=== PATIENT | female | born 1935 | race Caucasian/White ===

== ENCOUNTER → 2017-04-25 | Outpatient (CLI) | payer MEDICARE, OTHER ==
[~2017-04-25] MED LIST: CALC600T72 PO; MULT-1335 PO; POTA473S4 PO; WATER PILL; [UNRECOGNIZED DRUG - OTHER]
--- NOTE | 2017-04-26 08:24 | RADIOLOGY IMAGING REPORT ---
FACILITY: [facility] PATIENT NAME: KAYLYNN STEWART : [id number] MR: [id number] V: [id number] EXAM DATE: ORDERING PHYSICIAN: ROSS GORE TECHNOLOGIST: Jenna Chavarria PROCEDURE:BILATERAL DIGITAL SCREENING MAMMOGRAM WITH CAD ASSISTED INTERPRETATION AND 3D BREAST TOMOSYNTHESIS. COMPARISON:Prior mammograms dated 03/10/16, 03/08/15, 04/08/13, , 03/06/11 and 02/20/11. I/NDICATIONS:SCREENING FINDINGS: Moderately heterogeneous fibroglandular tissue is seen throughout the breasts. The parenchymal pattern has remained stable when allowing for difference in mammographic technique and patient positioning. There is no evidence of malignant appearing mass, malignant appearing calcification or other secondary sign of malignancy in either breast. DIAGNOSTIC CATEGORY 1--NEGATIVE. RECOMMENDATIONS: ROUTINE MAMMOGRAM AND CLINICAL EVALUATION. IMPRESSION: Bi-RADS 1: No significant abnormality is seen. Images were reviewed with R2CAD and 3D breast tomosynthesis. Dictated by: Queta Dove M.D. on 04/25/2017 at 15:45 Transcribed by: SEDA on 04/25/2017 at 19:10 Approved by: Queta Dove M.D. on 04/26/2017 at 8:23 [facility] /, / and /
== END ==
LOC: MAMO 01:37
PROVIDERS: ATTEND Family Medicine
DX: Z12.31 Encounter for screening mammogram for malignant neoplasm of breast (principal)
CPT/HCPCS: 77063; 77067

== ENCOUNTER → 2018-05-23 | Outpatient (CLI) | payer MEDICARE, OTHER ==
--- NOTE | 2018-05-23 14:45 | RADIOLOGY IMAGING REPORT ---
FACILITY: [facility] [place] PATIENT NAME: Marimar Webb : 1935 MR: [id number] V: [id number] EXAM DATE: ORDERING PHYSICIAN: ROSS GORE TECHNOLOGIST: Location: [facility] [place] Patient: Marimar Webb : 1935 Visit/Account:[id number] Date of Sevice: 05/23/2018 BONE DENSITY HISTORY: Screening COMPARISON: DEXA 02/20/2011 FINDINGS: LUMBAR SPINE: Bone mineral density (BMD) measured from L1-L4 correlates with a Z-score of 3.4 and a T-score of 1.1 which is normal as defined by the World Health Organization. The corresponding risk of fracture in t he lumbar spine is not increased compared with a young adult reference population. This value has in creased by 8.5% since the prior study. More than 5% change is considered significant. HIP: Bone mineral density (BMD) measured in the left total hip region correlates with a Z-score of 3.3 and a T-score of 0.8 which is normal as defined by the World Health Organization. The corresponding ris k of fracture in the hip is not increased compared with a young adult reference population. This deanna ue has increased by 1.7% since the prior study. More than 5% change is considered significant. Bone mineral density (BMD) measured in the left Femoral Neck region measures 1.0 g/cm2. IMPRESSION: 1. Lumbar spine: Normal. There has been increase in the bone mineral density since the previous ex am. 2. Left Total Hip: Normal. There has been no significant change in the bone mineral density since the previous exam. 3. Left Femoral Neck: Bone Mineral Density is 1.1 g/cm2. The next DEXA scan of this patient should include the following sites: L1-L4, left hip. FRAX? WHO Fracture Risk Assessment Tool link: <http://www.shef.ac.uk/FRAX/tool.jsp?locationValue=9> PLEASE NOTE: 1) The World Health Organization defines low BMD as follows: T-score Normal > -1 Osteopenia < -1 and > -2.5 Osteoporosis < -2.5 without fractures Established osteoporosis < -2.5 with fractures 2) In general, you may wish to consider: Diagnosis Treatment Follow-up DEXA Normal BMD Prevention 2-3 years Osteopenia Prevention/therapy 1-2 years Osteoporosis Therapy Yearly 3) Fracture risk estimated from the T-score is more accurate for vertebral fractures (often spontane ous) than for hip fractures. Report Dictated By: Rolando Morgan DO at 05/23/2018 2:39 PM Report E-Signed By: Rolando Morgan DO at 05/23/2018 2:41 PM WSN:[id number]
--- NOTE | 2018-05-29 16:46 | RADIOLOGY IMAGING REPORT ---
FACILITY: [facility] PATIENT NAME: KAYLYNN STEWART : [id number] MR: [id number] V: [id number] EXAM DATE: [id number] ORDERING PHYSICIAN: ROSS GORE TECHNOLOGIST: Flori Cotter PROCEDURE:BILATERAL DIGITAL SCREENING MAMMOGRAM WITH CAD ASSISTED INTERPRETATION & 3D TOMOSYNTHESIS COMPARISON:Prior mammograms. INDICATIONS:screening FINDINGS: The breasts are heterogeneously dense. A small focal asymmetry is present in the anterior Right breast, unchanged. Benign appearing asymmetries are scattered else were in both breast, unchanged. DIAGNOSTIC CATEGORY 1--NEGATIVE. RECOMMENDATIONS: ROUTINE MAMMOGRAM AND CLINICAL EVALUATION IN 1 YR. IMPRESSION: BIRADS 1: Negative. Dictated by: Yayo Jamison M.D. on 05/24/2018 at 13:08 Transcribed by: JAMES on 05/24/2018 at 13:47 Approved by: Queta Dove M.D. on 05/29/2018 at 16:44 [facility]
== END ==
LOC: MAMO 00:46
PROVIDERS: ATTEND Family Medicine
DX: Z12.31 Encounter for screening mammogram for malignant neoplasm of breast (principal); N95.1 Menopausal and female climacteric states; Z80.3 Family history of malignant neoplasm of breast
CPT/HCPCS: 77063; 77067; 77080

== ENCOUNTER 2018-08-10 03:36 | Emergency (ER) | payer MEDICARE, OTHER ==
--- NOTE | 2018-08-10 03:54 | ER Report ---
History and Physical Time Seen By MD: 03:53 Hx. of Stated Complaint: PATIENT REPORTS WAKING UP FROM SLEEP APPROX 0300 WITH ACUTE ONSET ABDOMINAL PAIN HPI/ROS CHIEF COMPLAINT: Abdominal pain HISTORY OF PRESENT ILLNESS: This is an 83-year-old female. She awoke from sleep tonight at approximately 0300 hours with acute abdominal pain. She feels this in the left upper area of her abdomen and somewhat in the epigastric area. She had gotten up to use the bathroom and when she went to go back in bed is when the pain started. She denies any nausea or vomiting with this. Her bowels have been normal without any diarrhea or constipation recently. She denies any trouble with urination such as dysuria or frequency. No blood in the stool or urine noted. No fevers or chills. Denies any chest pains or shortness of breath. Allergies: Coded Allergies: No Known Drug Allergies (Unverified , 08/10/18) Home Meds No Active Prescriptions or Reported Meds Past Medical/Surgical History Surgical history includes cholecystectomy and very remote history of appendectomy. She also has some arthritis, mainly in her hands. Her primary care provider has been watching her blood pressure which is slowly been increasing recently, no current treatment. No regular medicines but takes supplements including calcium and vitamin D Reviewed Nurses Notes: Yes Smoking Status: Never Smoker Constitutional Physical Exam General Appearance: The patient is alert. No acute distress. Eyes: Pupils are equal, round. No pallor, injection or icterus. ENT: Mucous membranes are moist. Normal oral mucosa. Posterior oropharynx is normal. Neck: Supple and non tender. Respiratory: Lungs are clear to auscultation. Cardiovascular: Bradycardia but with a regular rhythm. No murmurs, gallops or rubs. Normal capillary refill. No edema. Gastrointestinal: Abdomen is soft but is tender in the left upper quadrant and to a lesser extent in the epigastric area. Nondistended. No rebound or guarding. No masses or organomegaly. Normal active bowel sounds. No costovertebral angle tenderness with percussion. Neurological: Alert and oriented x3. No focal neurologic deficits Skin: Warm and dry. No rashes. Musculoskeletal: Extremities are nontender. No pain with palpating the spine and back. DIFFERENTIAL DIAGNOSIS: After history and physical exam, differential diagnosis was considered for a patient with left-sided abdominal pain starting tonight uncertain etiology but would consider urinary tract related versus colitis or diverticulitis although no fevers or chills or real changes in bowel or bladder function. The bradycardia that is incidentally noted is concerning as well and I would like to get an EKG to further clarify this as well. She denies any chest pains. Medical Decision Making Data Points Laboratory Hematology Test 08/10/18 03:45 08/10/18 03:54 Urine Color Yellow Urine Clarity Slightly-cloudy Urine pH 6.0 pH (4.8-9.5) Urine Specific [place] 1.013 Urine Protein Negative mg/dL (NEGATIVE) Urine Glucose (UA) Negative mg/dL (NEGATIVE) Urine Ketones Negative mg/dL (NEGATIVE) Urine Blood Small (NEGATIVE) Urine Nitrite Negative (NEGATIVE) Urine Bilirubin Negative (NEGATIVE) Urine Urobilinogen Negative mg/dL (0.2-1.9) Urine Leukocyte Esterase Negative (NEGATIVE) Urine RBC 3 /HPF (0-2/HPF) Urine WBC 3 /HPF (0-5/HPF) Urine Squamous Epithelial Cells Many /LPF (</=FEW) Urine Transitional Epithelial Cells Moderate /LPF (NONE-FEW) Urine Calcium Oxalate Crystals Many /HPF (NONE) Urine Bacteria Negative /HPF (NONE-FEW) Urine Mucus None /HPF (NONE-FEW) Red Blood Count 5.58 M/uL (4.17-5.56) Mean Corpuscular Volume 88.4 fL (80.0-96.0) Mean Corpuscular Hemoglobin 29.8 pg (26.0-33.0) Mean Corpuscular Hemoglobin Concent 33.7 g/dL (32.0-36.0) Red Cell Distribution Width 14.9 % (11.5-14.5) Mean Platelet Volume 9.6 fL (7.2-11.1) Neutrophils (%) (Auto) 33.3 % (39.4-72.5) Lymphocytes (%) (Auto) 56.1 % (17.6-49.6) Monocytes (%) (Auto) 9.9 % (4.1-12.4) Eosinophils (%) (Auto) 0.3 % (0.4-6.7) Basophils (%) (Auto) 0.4 % (0.3-1.4) Nucleated RBC Relative Count (auto) 0.0 /100WBC Neutrophils # (Auto) 1.4 K/uL (2.0-7.4) Lymphocytes # (Auto) 2.3 K/uL (1.3-3.6) Monocytes # (Auto) 0.4 K/uL (0.3-1.0) Eosinophils # (Auto) 0.0 K/uL (0.0-0.5) Basophils # (Auto) 0.0 K/uL (0.0-0.1) Nucleated RBC Absolute Count (auto) 0.00 K/uL Sodium Level 140 mmol/L (137-145) Potassium Level 3.9 mmol/L (3.5-5.0) Chloride Level 102 mmol/L (98-107) Carbon Dioxide Level 29 mmol/L (22-31) Blood Urea Nitrogen 18 mg/dl (7-18) Creatinine 0.80 mg/dl (0.52-1.04) Glomerular Filtration Rate Calc > 60.0 Random Glucose 121 mg/dl (75-110) Calcium Level 10.3 mg/dl (8.4-10.2) Total Bilirubin 1.1 mg/dl (0.2-1.3) Aspartate Amino Transf (AST/SGOT) 35 U/L (0-35) Alanine Aminotransferase (ALT/SGPT) 20 U/L (0-56) Alkaline Phosphatase 58 U/L (0-126) Total Protein 8.0 g/dl (6.3-8.2) Albumin 4.6 g/dl (3.5-5.0) Amylase Level 73 U/L (0-110) Lipase 126 U/L (23-300) Chemistry Test 08/10/18 03:45 08/10/18 03:54 Urine Color Yellow Urine Clarity Slightly-cloudy Urine pH 6.0 pH (4.8-9.5) Urine Specific [place] 1.013 Urine Protein Negative mg/dL (NEGATIVE) Urine Glucose (UA) Negative mg/dL (NEGATIVE) Urine Ketones Negative mg/dL (NEGATIVE) Urine Blood Small (NEGATIVE) Urine Nitrite Negative (NEGATIVE) Urine Bilirubin Negative (NEGATIVE) Urine Urobilinogen Negative mg/dL (0.2-1.9) Urine Leukocyte Esterase Negative (NEGATIVE) Urine RBC 3 /HPF (0-2/HPF) Urine WBC 3 /HPF (0-5/HPF) Urine Squamous Epithelial Cells Many /LPF (</=FEW) Urine Transitional Epithelial Cells Moderate /LPF (NONE-FEW) Urine Calcium Oxalate Crystals Many /HPF (NONE) Urine Bacteria Negative /HPF (NONE-FEW) Urine Mucus None /HPF (NONE-FEW) White Blood Count 4.1 k/uL (4.5-11.0) Red Blood Count 5.58 M/uL (4.17-5.56) Hemoglobin 16.6 g/dL (12.0-16.0) Hematocrit 49.3 % (34.0-47.0) Mean Corpuscular Volume 88.4 fL (80.0-96.0) Mean Corpuscular Hemoglobin 29.8 pg (26.0-33.0) Mean Corpuscular Hemoglobin Concent 33.7 g/dL (32.0-36.0) Red Cell Distribution Width 14.9 % (11.5-14.5) Platelet Count 145 K/uL (150-450) Mean Platelet Volume 9.6 fL (7.2-11.1) Neutrophils (%) (Auto) 33.3 % (39.4-72.5) Lymphocytes (%) (Auto) 56.1 % (17.6-49.6) Monocytes (%) (Auto) 9.9 % (4.1-12.4) Eosinophils (%) (Auto) 0.3 % (0.4-6.7) Basophils (%) (Auto) 0.4 % (0.3-1.4) Nucleated RBC Relative Count (auto) 0.0 /100WBC Neutrophils # (Auto) 1.4 K/uL (2.0-7.4) Lymphocytes # (Auto) 2.3 K/uL (1.3-3.6) Monocytes # (Auto) 0.4 K/uL (0.3-1.0) Eosinophils # (Auto) 0.0 K/uL (0.0-0.5) Basophils # (Auto) 0.0 K/uL (0.0-0.1) Nucleated RBC Absolute Count (auto) 0.00 K/uL Glomerular Filtration Rate Calc > 60.0 Calcium Level 10.3 mg/dl (8.4-10.2) Total Bilirubin 1.1 mg/dl (0.2-1.3) Aspartate Amino Transf (AST/SGOT) 35 U/L (0-35) Alanine Aminotransferase (ALT/SGPT) 20 U/L (0-56) Alkaline Phosphatase 58 U/L (0-126) Total Protein 8.0 g/dl (6.3-8.2) Albumin 4.6 g/dl (3.5-5.0) Amylase Level 73 U/L (0-110) Lipase 126 U/L (23-300) Urinalysis Test 08/10/18 03:45 Urine Color Yellow Urine Clarity Slightly-cloudy Urine pH 6.0 pH (4.8-9.5) Urine Specific [place] 1.013 Urine Protein Negative mg/dL (NEGATIVE) Urine Glucose (UA) Negative mg/dL (NEGATIVE) Urine Ketones Negative mg/dL (NEGATIVE) Urine Blood Small (NEGATIVE) Urine Nitrite Negative (NEGATIVE) Urine Bilirubin Negative (NEGATIVE) Urine Urobilinogen Negative mg/dL (0.2-1.9) Urine Leukocyte Esterase Negative (NEGATIVE) Urine RBC 3 /HPF (0-2/HPF) Urine WBC 3 /HPF (0-5/HPF) Urine Squamous Epithelial Cells Many /LPF (</=FEW) Urine Transitional Epithelial Cells Moderate /LPF (NONE-FEW) Urine Calcium Oxalate Crystals Many /HPF (NONE) Urine Bacteria Negative /HPF (NONE-FEW) Urine Mucus None /HPF (NONE-FEW) EKG/Imaging EKG Interpretation 12 lead EKG: Rhythm: This appears to be complete heart block with a rate of 42 [place]: normal QRS: Wide complex ventricular beats ST segments: Nonspecific based on underlying rhythm Imaging CT of the abdomen and pelvis with contrast: Indication: Epigastric and left upper quadrant pain. Technique: Helical CT was performed through the abdomen and pelvis following IV contrast enhancement with 75 cc of Isovue-370. Multiplanar reconstructions are reviewed. One of the following dose optimization techniques was utilized in the perform ance of this exam: Automated exposure control; adjustment of the mA and/or kV according to the patient's size; or use of an iterative reconstruction technique. Specific details can be referenced in the facility's radiology CT exam operational policy. Comparison: None available. Lower lung aguilar: No focal parenchymal or pleural abnormality is identified. Liver: Normal in size, shape, and density. The venous structures appear unremarkable. Gallbladder/biliary tree: There are surgical clips related to prior cholecystectomy. The bile ducts are not dilated. Pancreas: Unremarkable, as visualized. Spleen: Normal in size, shape, and density. Adrenal glands: Within normal limits. Kidneys/urinary bladder: The kidneys are normal in size, shape, and density. There are no signs of urinary tract calculus or obstruction. The bladder appears homogeneous and unremarkable. Mesentery: There is confluent abnormal soft tissue density in the root of the mesentery, suspicious for lymphoma. No discrete lymph nodes are clearly identified. Intestinal structures: Unremarkable, as visualized. There are no signs of obstruction or focal inflammatory changes. Pelvis: The uterus and adnexal structures are unremarkable, as visualized. There are no signs of lymph node enlargement, soft tissue abnormality, or fluid in the pelvis. Aorta and vascular structures: There is moderate atherosclerotic calcification in the aorta and iliac arteries. There is no evidence of aneurysm. Ascites or fluid collections: None seen. Skeletal structures: There are chronic degenerative changes in the lumbar spine and hips. No acute skeletal deformity or destructive skeletal lesions are identified. Impression: There is confluent abnormal soft tissue density in the root of the mesentery, suspicious for lymphoma. No discrete lymph nodes are clearly identified. Further clinical correlation is recommended. Report Dictated By: Manuel Palomares MD at 08/10/2018 5:21 AM ED Course/Re-evaluation Clinical Indication for ER IV: Hydration, IV Access ED Course After initial evaluation, heart rate was noted to be low. EKG was obtained and did show complete heart block. Patient is not having any syncope, level of alertness is normal. I reviewed this finding with the patient and we did move her into a different room and placed external pacing pads on in case we needed to do external pacing. Labs were obtained and do show changes in the white count consistent with possible lymphoma, and on metabolic panel everything is normal other than elevated calcium. Urinalysis does show some white cells and red cells but quite a bit of epithelial cells in the urine as well consistent with likely contamination. We will order a urine culture on this. CT scan was obtained and does show some thickening in the root of the mesentery consistent with possible lymphoma, this is also consistent with the labs were seen. Uncertain how this would be related to complete heart block and lesser was lymphoma infiltrating cardiac tissue as well. No history of heart problems in the past. I reviewed all this information with the patient as well as her daughter and granddaughter who are present. We did discuss CODE STATUS. At this point in time she is not certain what she would want. She did state that she doesn't want to be hooked up to a machine. She is uncertain about whether she wants a pacemaker but we'll discuss this with the credit investigator. Because she is uncertain, at this point she is considered a FULL CODE. I discussed the case with cardiology and the hospitalist in [place], Dr. Verduzco, the hospitalist is the accepting physician. She will be going to the ICU there for further care and further workup and treatment of both the complete heart block as well as the abdominal pain and question of lymphoma. Decision to Disposition Date: August 10, 2018 Decision to Disposition Time: 06:20 Depart Departure Latest Vital Signs Impression: Primary Impression: Complete heart block Additional Impression: Abdominal pain Condition: Condition Unchanged Disposition: XFER TO ACUTE CARE HOSPITAL Referrals: ROSS GORE DO (PCP) New Scripts No Active Prescriptions or Reported Meds Problem Qualifiers Additional Impression: Abdominal pain Abdominal location: upper abdomen, unspecified Qualified Codes: R10.10 - Upper abdominal pain, unspecified RICKI ROMERO MD August 10, 2018 03:54
[2018-08-10] MEDS ORDERED: NS(*) 0.9% 1000 ML BAG 1,000 ML IV ONE (04:05)
[2018-08-10 04:14] LABS: PLATELET COUNT, AUTOMATED 145 K/uL (150-450)
--- NOTE | 2018-08-10 04:15 | EKG ---
FACILITY: [facility] [place] PATIENT NAME: KAYLYNN STEWART : [id number] MR: [id number] V: [id number] EXAM DATE: ORDERING PHYSICIAN: RICKI ROMERO TECHNOLOGIST: ZARINA Test Reason : ABDOMINAL PAIN Blood Pressure : / mmHG Vent. Rate : 042 BPM Atrial Rate : 061 BPM P-R Int : 000 ms QRS Dur : 130 ms QT Int : 520 ms P-R-T Axes : 000 082 234 degrees QTc Int : 434 ms Third degree heart block with ventricular escape rhythm Abnormal ECG No previous ECGs available Confirmed by Jean Henson ([id number]) on 08/10/2018 8:02:15 AM Referred By: Confirmed By:Jean Louise
[2018-08-10] MEDS ORDERED: IOPAMIDOL 76% 150 ML INFUS BTL 150 ML ONE (04:18)
--- NOTE | 2018-08-10 05:40 | RADIOLOGY IMAGING REPORT ---
FACILITY: [facility] PATIENT NAME: Marimar Webb : 1935 MR: [id number] V: [id number] EXAM DATE: ORDERING PHYSICIAN: RICKI ROMERO TECHNOLOGIST: Location: [facility] [place], [place] Patient: Marimar Webb : 1935 Visit/Account:[id number] Date of Sevice: 08/10/2018 CT of the abdomen and pelvis with contrast: Indication: Epigastric and left upper quadrant pain. Technique: Helical CT was performed through the abdomen and pelvis following IV contrast enhancement with 75 cc of Isovue-370. Multiplanar reconstructions are reviewed. One of the following dose optimization techniques was utilized in the performance of this exam: Autom ated exposure control; adjustment of the mA and/or kV according to the patient's size; or use of an i terative reconstruction technique. Specific details can be referenced in the facility's radiology CT exam operational policy. Comparison: None available. Lower lung aguilar: No focal parenchymal or pleural abnormality is identified. Liver: Normal in size, shape, and density. The venous structures appear unremarkable. Gallbladder/biliary tree: There are surgical clips related to prior cholecystectomy. The bile ducts a re not dilated. Pancreas: Unremarkable, as visualized. Spleen: Normal in size, shape, and density. Adrenal glands: Within normal limits. Kidneys/urinary bladder: The kidneys are normal in size, shape, and density. There are no signs of urinary tract calculus or obstruction. The bladder appears homogeneous and unremarkable. Mesentery: There is confluent abnormal soft tissue density in the root of the mesentery, suspicious f or lymphoma. No discrete lymph nodes are clearly identified. Intestinal structures: Unremarkable, as visualized. There are no signs of obstruction or focal inflam matory changes. Pelvis: The uterus and adnexal structures are unremarkable, as visualized. There are no signs of lymp h node enlargement, soft tissue abnormality, or fluid in the pelvis. Aorta and vascular structures: There is moderate atherosclerotic calcification in the aorta and iliac arteries. There is no evidence of aneurysm. Ascites or fluid collections: None seen. Skeletal structures: There are chronic degenerative changes in the lumbar spine and hips. No acute sk eletal deformity or destructive skeletal lesions are identified. Impression: There is confluent abnormal soft tissue density in the root of the mesentery, suspicious for lymphoma. No discrete lymph nodes are clearly identified. Further clinical correlation is recomme nded. Report Dictated By: Manuel Palomares MD at 08/10/2018 5:21 AM Report E-Signed By: Manuel Palomares MD at 08/10/2018 5:36 AM WSN:[id number]
[2018-08-10] MEDS ORDERED: fentaNYL CITR 100 MCG/2 ML AMP IVP ONE ×2 (06:00→07:00)
[2018-08-10] MEDS ORDERED: PROMETHAZINE 25 MG/ML 1 ML AMP IVP ONE (06:10)
[2018-08-10 07:00] VITALS: BP 195/86
== END 2018-08-10 07:31 | disposition short-term general hospital (02) ==
LOC: ER 03:45
DX: I44.2 Atrioventricular block, complete (principal); R10.10 Upper abdominal pain, unspecified
CPT/HCPCS: 74177; 81001; 82150; 83690; 85025; 93005; 96361; 96374; 96375; 96376; 99285; J2550; J3010; J7030; Q9967; 82040; 82247; 82310; 82374; 82435; 82565; 82947; 84075; 84132; 84155; 84295; 84450; 84460; 84520

== ENCOUNTER → 2018-08-10 | Outpatient (CLI) | payer MEDICARE, OTHER | LOC: AMB 07:20 | DX: R10.9 Unspecified abdominal pain (principal); I44.2 Atrioventricular block, complete | CPT/HCPCS: A0425; A0427 ==

== ENCOUNTER 2018-10-01 10:46 | Outpatient (RCR) | payer MEDICARE, OTHER ==
[2018-09-19 13:03] VITALS: BP 157/93
[2018-09-19 14:04] LABS: PLATELET COUNT, AUTOMATED 138 K/uL (150-450)
--- NOTE | 2018-09-19 15:23 | [facility] ONCOLOGY NOTE ---
EVENT DATE: September 19, [address] Nii Harris REASON FOR CONSULTATION Evaluation and management of mesenteric mass. PRIMARY CARE PROVIDER Chato Couch DO ONCOLOGY HISTORY Patient is an 83-year old female who was diagnosed recently with hypertension and complete heart block, status post pacemaker placement on August 12, 2018, and patient during her evaluation was found to have a mesenteric mass. She had a CT abdomen/pelvis done on August 10, 2018, which showed a mass at the root of mesentery suggestive of lymphoma. Patient denies any B symptoms or constitutional symptoms. PAST MEDICAL HISTORY 1. Hypertension. 2. Complete heart block, status post pacemaker placement on August 12, 2018. 3. Arthritis. PAST SURGICAL HISTORY 1. Appendectomy. 2. Cholecystectomy. 3. Placement of pacemaker on August 12, 2018, for complete heart block. FAMILY HISTORY Mother with breast cancer, son with lymphoma and brother with colon cancer. SOCIAL HISTORY Patient is a with two living children and son with lymphoma. 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 She has a glass of wine daily but denies any abuse of tobacco or illicit drugs. CURRENT MEDICATIONS Amlodipine 5 mg daily. ALLERGIES No known drug allergies. REVIEW OF SYSTEMS CONSTITUTIONAL: No appetite or weight change. No fever, chills or sweating. No recent infection. HEENT: Ears: No tinnitus or hearing problem. Nose: No nasal discharge or epistaxis. Throat: No sore throat or mouth ulcers. Eyes: No diplopia or visual changes. RESPIRATORY: No shortness of breath. No cough, expectoration or hemoptysis. CARDIOVASCULAR: No chest pain, orthopnea, or paroxysmal nocturnal dyspnea (PND). No edema. No palpitations. GASTROINTESTINAL: No nausea or vomiting. No diarrhea or constipation. No change in bowel movements. No heartburn or swallowing difficulties. No abdominal pain. No jaundice. No hematemesis, melena or rectal bleeding. GENITOURINARY: No hematuria or dysuria. MUSCULOSKELETAL: No pain in the muscles, joints or bones. NEUROLOGICAL: No tingling or numbness in the hands or feet. No headaches or convulsions. HEMATOLOGIC/LYMPHATIC: No bleeding or easy bruising. No weakness or fatigued. No enlarged lymph nodes. SKIN: No skin rash or lumps. PSYCHIATRIC: No anxiety or depression. PHYSICAL EXAMINATION GENERAL: Looks stable. Well-developed, well-nourished, and in no acute distress. VITAL SIGNS: Blood pressure 157/93, pulse 89 per minute, respirations 16 per minute, temperature 98.4, pulse oximetry 91% on room air. HEENT: Head: Atraumatic. No sinus tenderness to palpation. Eyes: No icterus or conjunctivitis. Mouth and throat: No oral thrush or mucositis. NECK: Supple. No cervical or supraclavicular lymphadenopathy. LUNGS: Clear to auscultation and percussion bilaterally. HEART: Regular rate and rhythm. No gallops, murmurs, clicks or rubs. ABDOMEN: Soft and lax. No tenderness. No hepatosplenomegaly. No masses. EXTREMITIES: No cyanosis, clubbing or edema. LYMPHATICS: No peripheral lymphadenopathy. NEUROLOGICAL: Conscious, alert and oriented times three. No focal motor or sensory deficits. PSYCHIATRIC: Mood and affect appear normal. SKIN: No skin rash, bruise or purpuric eruption. ASSESSMENT Mesenteric mass, could be benign or malignant. If malignant, then pancreatic and gynecologic tumors can cause mesenteric metastasis and, of course, lymphoma could also be a possibility. I am planning to check her CBC, chem panel, LDH, uric acid and I am planning to check the tumor markers with CA19-9, CA15-3, CA- 125 and CEA. I am planning to send the patient for CT-guided biopsy of the mesenteric mass. I will see her after those results to decide about further evaluation and management. PLAN 1. CBC. 2. Chem panel. 3. LDH. 4. Uric acid. 5. CA15-3. 6. CA-125. 7. CEA. 8. CA19.9. 9. CT-guided biopsy of the mesenteric mass. 10. Patient to return after the above for further evaluation and management. 11. Patient to contact us for any new concerns or complaints. EMMANUEL
--- NOTE | 2018-09-30 16:15 | NUR ---
Called patient's daughter, Noreen, regarding message left by patient stating that she was "thinking about cancelling Sunday". She is scheduled for a CT guided biopsy. Daughter did not answer so RN left her a message to contact our office.
[~2018-10-01] VITALS: Ht 165.4 cm; Wt 53.2 kg
[~2018-10-01 10:46] MED LIST changes: +AMLO-101 PO; +CHOL10005 PO; +DHA PO; +LACT1CAP6 PO; +UBIQ100C3 PO; +[UNRECOGNIZED DRUG - CODE] PO
[2018-10-01 10:50] VITALS: BP 148/83
[2018-10-01 11:03] LABS: PLATELET COUNT, AUTOMATED 164 K/uL (150-450)
[2018-10-01 11:09] LABS: INR 0.96
--- NOTE | 2018-10-04 12:38 | NUR ---
Called and left patients daughterNoreen, a message to contact our office regarding follow up. Also left a message with the patient.
--- NOTE | 2018-10-04 13:36 | NUR ---
Spoke to patients daughterNoreen. Informed her of the results from the CT guided biopsy which she was already aware of. She was informed that according to Dr. Haley her mother could just follow up with her primary care provider. She verbalized understanding.
== END 2018-10-30 13:43 | disposition home or self-care (01) ==
LOC: SPU 10:46
PROVIDERS: ATTEND Internal Medicine Hematology
DX: R19.07 Generalized intra-abdominal and pelvic swelling, mass and lump (principal)
CPT/HCPCS: 36415; 83615; 84550; 85025; 85610; 85730; G0463; 82040; 82247; 82310; 82374; 82435; 82565; 82947; 84075; 84132; 84155; 84295; 84450; 84460; 84520; 99202